=== PATIENT | female | born 1995 | race African-American/Black ===

== ENCOUNTER 2017-03-19 18:29 | Emergency (ER) | payer MEDICAID ==
[~2017-03-19 18:29] MED LIST: PROT40TA PO; SULF200S24 PO
--- NOTE | 2017-03-19 19:20 | PD ---
HPI Chief Complaint Swelling over right mons pubis. 25 weeks and 1 day Date Seen: Mar 19, 2017 Time Seen: 19:02 Travel History International Travel<30 Days: No Contact w/Intl Traveler<30Days: No Known Affected Area: No History of Present Illness HPI Pt is a 21 yo at 25 weeks and 1 day . [facility] 07-01-2017. Pt sees MFM at [place], for h/o delivery. Receives weekly Seble shots. Pt states she noticed swelling over right side of mons pubis about 5 days ago. No itching, no pain. Active movements. No vaginal bleeding or discharge. Weeks Gestation: 25 Para: 1 : 2 History Past Medical History Medical History: Denies Significant Hx Obstetric History Obstetric History Pt had 30 week delivery at 30 weeks Past Surgical History Surgical History: No Previous Surgery Family History Family History: Negative Social History Alcohol Use: No Tobacco Use: No Substance Abuse: No Allergies-Medications (Allergen,Severity, Reaction): Coded Allergies: No Known Allergies (Unverified , 06/28/15) Home Meds Active Scripts Sulfamethoxazole-Trimethoprim (BACTRIM SUSP 200-40 mg/5Ml) 5 Ml Susp, 20 ML PO BID for 7 Days, ML Prov:Virginie Connor MD 06/28/15 Pantoprazole Sodium (Protonix) 40 Mg Tab, 40 MG PO DAILY for 30 Days, TAB Prov:Jaiden Schuster MD 04/24/15 Review of Systems Except as stated in HPI: all other systems reviewed are Neg Physical Exam Narrative GENERAL: Well-nourished, well-developed patient. SKIN: Warm and dry. HEAD: Normocephalic and atraumatic. EYES: No scleral icterus. No injection or drainage. ENT: No nasal drainage noted. Mucous membranes pink. Airway patent. NECK: Supple, trachea midline. No JVD. CARDIOVASCULAR: Regular rate and rhythm without murmurs, gallops, or rubs. RESPIRATORY: Breath sounds equal bilaterally. No accessory muscle use. BREASTS: Bilateral exam showed no masses , no retractions, no nipple discharge. ABDOMEN/GI: Abdomen soft, non-tender, bowel sounds present, no rebound, no guarding Gravid to [23] weeks size Fundal Height: [23cm] GENITOURINARY: External Genitalia: intact and normal in appearance slight edema over right side of mons pubis. No induration, no tenderness. BUS glands: [-] Cervix: [-] Dilatation: [-] Effacement: [-] Station: [-] Presentation: [-] Membranes: [intact or ruptured] Uterine Contractions: [-] FHT's: Category: [130s] Baseline: [-] Reactive: [-] Variability: [-] Decels: [-] EXTREMITIES: No cyanosis or edema. BACK: Nontender without obvious deformity. No CVA tenderness. NEUROLOGICAL: Awake and alert. Motor and sensory grossly within normal limits. Five out of 5 muscle strength in all muscle groups. Normal speech. Data Data Vital Signs Reviewed: Yes [facility] Medical Record Reviewed: Yes Interpretation(s) Minimal swelling over mons pubis Plan Slight edema over right side mons pubis. No underlying induration,no tenderness. Advised observation. pt told to schedule appointment with her OBGYN within 1 week Diagnosis Diagnosis: Primary Impression: Vulval edema Disposition: DISCHARGE HOME Nito Solitario MD Mar 19, 2017 19:20
== END 2017-03-19 20:00 | disposition home or self-care (01) ==
LOC: HOBED 18:29
DX: O26.892 Other specified pregnancy related conditions, second trimester (principal); Z3A.25 25 weeks gestation of pregnancy
CPT/HCPCS: 99283

== ENCOUNTER 2017-05-17 00:21 | Emergency (ER) | payer MEDICAID, OTHER ==
[~2017-05-17] VITALS: Ht 177.8 cm; Wt 85.0 kg
[2017-05-17 00:23] VITALS: BP 135/77; PULSE 87; RESP 16; TEMP 97.9; O2SAT 100
[2017-05-17] MEDS ORDERED: PROG50IN IM (00:32)
[2017-05-17] MEDS ORDERED: prenatal vitamin PO (00:32)
--- NOTE | 2017-05-17 01:38 | PD ---
HPI Chief Complaint: Eye Problems/Injury Time Seen by Provider: 01:16 Travel History International Travel<30 days: No Contact w/Intl Traveler<30days: No History of Present Illness HPI Patient comes in complaining of bilateral eye itchiness and dryness that began yesterday. Patient using [id number] eyedrops, which seems to help. Patient denies any crusting, blurred vision, contact lens use, drainage, headaches, sensation, or injury. Patient is concerned she might be getting pink eye. Patient states she's been trying not to rub them. Denies anything making her symptoms worse. [facility] Past Medical History Medical History: Denies Significant Hx Diminished Hearing: No Tetanus Vaccination: Unknown ?: LMP: 10/25/2016 33 weeks : 2 Para: 1 Miscarriage: 0 : 0 Past Surgical History Surgical History: No Previous Surgery Social History Alcohol Use: No Tobacco Use: No Substance Use: No Allergies-Medications (Allergen,Severity, Reaction): Coded Allergies: No Known Allergies (Unverified , 06/28/15) Reported Meds & Prescriptions Reported Meds & Active Scripts Active Reported [ vitamin] 1 Tab PO DAILY Progesterone Inj (Progesterone) 50 Mg/Ml Inj 250 Mg IM ONCE A WEEK Review of Systems Except as stated in HPI: all other systems reviewed are Neg Physical Exam Narrative GENERAL: Well-developed, overly nourished, in no acute distress, and non-ill appearing. SKIN: Focused skin assessment warm and dry. HEAD: Atraumatic. Normocephalic. EYES: Pupils equal and round. EOMI. No scleral icterus. No injection or drainage. Eyelid was everted with no foreign body noted. No tenderness bilateral temporal arteries to palpation. ENT: No nasal bleeding or discharge. Mucous membranes pink and moist. NECK: Trachea midline. Supple. No nuclear rigidity. RESPIRATORY: No accessory muscle use. No respiratory distress. Clear MUSCULOSKELETAL: No obvious deformities. No clubbing. No cyanosis. No edema. Full range of motion. NEUROLOGICAL: Awake and alert. No obvious cranial nerve deficits. Motor grossly within normal limits. Normal speech. PSYCHIATRIC: Appropriate mood and affect; insight and judgment normal. Data Data Last Documented VS Vital Signs Date Time Temp Pulse Resp B/P (MAP) Pulse Ox O2 Delivery O2 Flow Rate FiO2 05/17/17 01:39 05/17/17 00:23 97.9 87 16 100 Room Air Orders Orders Ed Discharge Order (05/17/17 01:38) MDM Medical Decision Making Medical Screen Exam Complete: Yes Emergency Medical Condition: Yes Differential Diagnosis Allergic conjunctivitis, viral conjunctivitis, bacterial conjunctivitis, other Narrative Course Patient with mild allergic conjunctivitis. No evidence of foreign body by history or exam. No history to suspect corneal ulceration as well. There is no evidence of iritis, glaucoma, preseptal cellulitis, periorbital or orbital cellulitis. Patient was instructed on [id number] antihistamines. The patient was instructed to follow up with their physician and/or seamstress fitter or return here if worsened, increased pain, decreased vision, swelling around the eye or as needed. Ophthalmology referral was given. The patient agreed with plan. Patient in no obvious distress upon re-evaluation. Any questions/concerns in reference to patient diagnosis/condition discussed and clarified prior to patient's discharge. Reinforced sheer importance of close follow up with patient 's primary physician or primary care clinic. Instructed patient to return to ED immediately, if symptoms return/worsen. Patient showed understanding of above instructions. Further instructions and recommendations were detailed in discharge paperwork. Patient ambulated without difficulty out of ED at discharge. Diagnosis Primary Impression: Allergic conjunctivitis of both eyes Referrals: Chaya Bird MD Patient Instructions: Allergies (ED), Conjunctivitis (ED), General Instructions Additional Instructions: Follow-up with your primary care physician and/or seamstress fitter in one to 2 days for reevaluation. Use [id number] Claritin or Zyrtec or Benadryl for symptomatic relief. Follow instructions on the packaging.. Return to the emergency department if symptoms get worse. Disposition: 01 DISCHARGE HOME Condition: Stable [place] May 17, 2017 01:38
== END 2017-05-17 01:46 | disposition home or self-care (01) ==
LOC: NEPD 00:21
DX: H10.13 Acute atopic conjunctivitis, bilateral (principal)
CPT/HCPCS: 99282

== ENCOUNTER 2017-06-04 13:37 | Emergency (ER) | payer MEDICAID ==
[~2017-06-04 13:37] MED LIST changes: +PROG50IN IM; -PROT40TA PO; -SULF200S24 PO; +prenatal vitamin PO
--- NOTE | 2017-06-04 16:09 | PD ---
HPI Chief Complaint abdominal and back pain Date Seen: Jun 04, 2017 Time Seen: 15:50 Travel History International Travel<30 Days: No Contact w/Intl Traveler<30Days: No Known Affected Area: No History of Present Illness HPI Ms Alvarez is a 22YO at 36/1 weeks who presents with bleeding today and abdominal and back pain. Her OB-POWDERED SUGAR SUPERVISOR Dr Mazariegos examined her today and found her to be 4cm dilated. Pt has some bloody show and is not renate. Denies CP , SOB, N/V/D, and DVT pain. Weeks Gestation: 36 Para: 1 : 2 Miscarriage: 0 : 0 History Past Medical History Medical History: Denies Significant Hx Past Surgical History Surgical History: No Previous Surgery Family History Family History: Negative Social History Alcohol Use: No Tobacco Use: No Substance Abuse: No Allergies-Medications (Allergen,Severity, Reaction): Coded Allergies: No Known Allergies (Unverified , 06/28/15) Home Meds Reported Medications [ vitamin] No Conflict Check, 1 TAB PO DAILY 05/17/17 Progesterone Inj (Progesterone Inj) 50 Mg/Ml Inj, 250 MG IM ONCE a week, #1 VIAL 0 Refills 05/17/17 Review of Systems General / Constitutional: No: Fever, Chills Eyes: No: Diploplia, Blurred Vision HENT: No: Headaches, Lightheadedness Cardiovascular: No: Chest Pain or Discomfort, Palpitations Respiratory: No: Short of Breath Gastrointestinal: Abdominal Pain, No: Nausea, Vomiting, Diarrhea, Constipation Genitourinary: No: Urgency, Frequency, Dysuria Musculoskeletal: No: Weakness Skin: No Rash Neurologic: No: Weakness, Dizziness Psychiatric: No: Anxiety, Depression Physical Exam Narrative GENERAL: Well-nourished, well-developed patient in NAD. SKIN: Warm and dry. No rashes or lesions. HEAD: Normocephalic and atraumatic. EYES: No scleral icterus. No injection or drainage. EOMI. ENT: No nasal drainage noted. Mucous membranes pink. Airway patent. NECK: Supple, trachea midline. No JVD. CARDIOVASCULAR: Regular rate and rhythm without murmurs, gallops, or rubs. RESPIRATORY: Breath sounds equal bilaterally. No accessory muscle use. ABDOMEN/GI: Abdomen soft, non-tender, bowel sounds present, no rebound, no guarding Gravid to 36 weeks size GENITOURINARY: External Genitalia: intact and normal in appearance Cervix: posterior Dilatation: 4 Effacement: 80 Station: -3 Presentation: vtx Membranes: intact Uterine Contractions: no FHT's: Category: 1 Baseline: 125 Reactive: yes Variability: moderate Decels: no EXTREMITIES: No cyanosis or edema. BACK: Nontender without obvious deformity. No CVA tenderness. NEUROLOGICAL: Awake and alert. Motor and sensory grossly within normal limits. Five out of 5 muscle strength in all muscle groups. Normal speech. Data Data Vital Signs Reviewed: Yes Labs GBS tested in OB-POWDERED SUGAR SUPERVISOR office today -- status unknown MDM Narrative Course / MDM 22YO at 36/1 weeks with some abdominal and low back pain and old blood in the vaginal vault likely from minor trauma from sexual intercourse within the last 24 hours. There are no contractions. Cervix 4/80/-3/vtx with Cat 1 tracing , BL 125, reactive, moderate and no decels. PLAN: -Discharge home -Return to ED if signs of labor (regular contractions, rupture of membranes) -Pt to decide where to deliver ([facility] vs [facility]) Diagnosis Diagnosis: Primary Impression: False labor before 37 completed weeks of gestation Qualified Codes: O47.03 - False labor before 37 completed weeks of gestation, third trimester Disposition: DISCHARGE HOME Condition: Stable Andrea Campos MD R1 Jun 04, 2017 16:09
== END 2017-06-04 17:22 | disposition home or self-care (01) ==
LOC: HOBED 13:37
DX: O47.03 False labor before 37 completed weeks of gestation, third trimester (principal); M54.9 Dorsalgia, unspecified; Z3A.36 36 weeks gestation of pregnancy; Z79.899 Other long term (current) drug therapy
CPT/HCPCS: 99284

== ENCOUNTER 2017-06-10 04:36 | Inpatient (IN) | payer OTHER, MEDICAID ==
[~2017-06-10] VITALS: Ht 177.8 cm; Wt 87.0 kg
[2017-06-10] VITALS (9 sets, daily range): BP systolic 112–129; BP diastolic 12–87; PULSE 66–92; RESP 18; TEMP 97.8–98.3
[2017-06-10] MEDS ORDERED: LACTATED RINGER'S 1000 ML INJ 1,000 ML IV PRN (05:10)
[2017-06-10] MEDS ORDERED: LIDOCAINE HCL 1% 50 ML VIAL I-DERMAL PRN (05:15)
[2017-06-10] MEDS ORDERED: SODIUM CHLORID 0.9% 500 ML INJ 500 ML IV PRN (05:15)
[2017-06-10] MEDS ORDERED: MINERAL OIL 10 ML VIAL TOPICAL PRN (05:15)
[2017-06-10] MEDS ORDERED: CITRIC ACID-SODIUM CITRATE LIQ 30 ML UDC PO SCH (05:15)
[2017-06-10] MEDS ORDERED: OXYTOCIN 30 UNITS-500ML PREMIX 500 ML IV ONE (05:15)
[2017-06-10] MEDS ORDERED: LIDOCAINE HCL 1% 50 ML VIAL INFIL PRN (05:15)
--- NOTE | 2017-06-10 05:15 | HHI.HP ---
HPI Chief Complaint Contractions Date Seen: Jun 10, 2017 Time Seen: 05:00 Travel History International Travel<30 Days: No Contact w/Intl Traveler<30Days: No Known Affected Area: No History of Present Illness HPI 22-year-old white female at 37 weeks who sees doctors and warm and but is come here she is complaining of contractions no bleeding or leaking, heart rate tracing is reactive and she is renate irregularly. Actually is completely dilated on admission to the hospital precipitous labor Weeks Gestation: 37 Para: 1 : 2 Last Menstrual Period: Jun 10, 2017 History Obstetric History Obstetric History One vaginal delivery at 30 weeks Social History Alcohol Use: No Tobacco Use: No Substance Abuse: No Allergies-Medications (Allergen,Severity, Reaction): Coded Allergies: No Known Allergies (Unverified , 06/28/15) Home Meds Reported Medications [ vitamin] No Conflict Check, 1 TAB PO DAILY 05/17/17 Progesterone Inj (Progesterone Inj) 50 Mg/Ml Inj, 250 MG IM ONCE a week, #1 VIAL 0 Refills 05/17/17 Review of Systems General / Constitutional: No: Fever, Weight Gain, Chills, Other Eyes: No: Diploplia, Blurred Vision, Visual changes, Pain, Photophobia HENT: No: Headaches, Vertigo, Lightheadedness Cardiovascular: No: Irregular Rhythm, Chest Pain or Discomfort, Palpitations, Tachycardia, Syncope, Varicosities, Edema, Cyanosis Respiratory: No: Cough, Short of Breath, Other Gastrointestinal: Abdominal Pain, No: Nausea, Vomiting, Diarrhea Genitourinary: No: Decreased Urinary Output, Oliguria Musculoskeletal: No: Limited ROM, Weakness, Cramping, Edema, Pain Skin: No Rash, No Itching, No Dryness, No Lumps, No Change in Pigmentation, No Change in Nails, No Alopecia, No Lesions Neurologic: No: Weakness, Dizziness, Syncope, Focal Abnormalities, Coordination Problem, Headache, Slurred Speech, Seizures Psychiatric: No: Depression, Suicidal Ideations, Homicidal Ideation Endocrine: No: Heat Intolerance, Cold Intolerance, Polydipsia, Polyuria, Other Physical Exam Narrative GENERAL: Well-nourished, well-developed patient. SKIN: Warm and dry. HEAD: Normocephalic and atraumatic. EYES: No scleral icterus. No injection or drainage. ENT: No nasal drainage noted. Mucous membranes pink. Airway patent. NECK: Supple, trachea midline. No JVD. CARDIOVASCULAR: Regular rate and rhythm without murmurs, gallops, or rubs. RESPIRATORY: Breath sounds equal bilaterally. No accessory muscle use. BREASTS: Bilateral exam showed no masses , no retractions, no nipple discharge. ABDOMEN/GI: Abdomen soft, non-tender, bowel sounds present, no rebound, no guarding Gravid to [37-] weeks size Fundal Height: [37-] GENITOURINARY: External Genitalia: intact and normal in appearance BUS glands: [-] Cervix: [-] Dilatation: [-10] Effacement: [-100] Station: [-1] Presentation: [-vtx] Membranes: [intact ] Uterine Contractions: [reg-] FHT's: Category: [1-] Baseline: [-133] Reactive: [-yes] Variability: [mod-] Decels: [0-] EXTREMITIES: No cyanosis or edema. BACK: Nontender without obvious deformity. No CVA tenderness. NEUROLOGICAL: Awake and alert. Motor and sensory grossly within normal limits. Five out of 5 muscle strength in all muscle groups. Normal speech. Caprini VTE Risk Assessment Caprini VTE Risk Assessment: No/Low Risk (score <= 1) Caprini Risk Assessment Model Point Value = 1 Point Value = 2 Point Value = 3 Point Value = 5 Age 41-60 Minor surgery BMI > 25 kg/m2 Swollen legs Varicose veins or History of unexplained or recurrent spontaneous Oral contraceptives or hormone replacement Sepsis (< 1 month) Serious lung disease, including pneumonia (< 1 month) Abnormal pulmonary function Acute myocardial infarction Congestive heart failure (< 1 month) History of inflammatory bowel disease Medical patient at bed rest Age 61-74 Arthroscopic surgery Major open surgery (> 45 min) Laparoscopic surgery (> 45 min) Malignancy Confined to bed (> 72 hours) Immobilizing plaster cast Central venous access Age >= 75 History of VTE Family history of VTE Factor V Leiden Prothrombin [id number] Lupus anticoagulant Anticardiolipin antibodies Elevated serum homocysteine Heparin-induced thrombocytopenia Other congenital or acquired thrombophilia Stroke (< 1 month) Elective arthroplasty Hip, pelvis, or leg fracture Acute spinal cord injury (< 1 month) Prophylaxis Regimen Total Risk Factor Score Risk Level Prophylaxis Regimen 0-1 Low Early ambulation 2 Moderate Order ONE of the following: *Sequential Compression Device (SCD) *Heparin 5000 units SQ BID 3-4 Higher Order ONE of the following medications: *Heparin 5000 units SQ TID *Enoxaparin/Lovenox 40 mg SQ daily (WT < 150 kg, CrCl > 30 mL/min) *Enoxaparin/Lovenox 30 mg SQ daily (WT < 150 kg, CrCl > 10-29 mL/min) *Enoxaparin/Lovenox 30 mg SQ BID (WT < 150 kg, CrCl > 30 mL/min) AND/OR *Sequential Compression Device (SCD) 5 or more Highest Order ONE of the following medications: *Heparin 5000 units SQ TID (Preferred with Epidurals) *Enoxaparin/Lovenox 40 mg SQ daily (WT < 150 kg, CrCl > 30 mL/min) *Enoxaparin/Lovenox 30 mg SQ daily (WT < 150 kg, CrCl > 10-29 mL/min) *Enoxaparin/Lovenox 30 mg SQ BID (WT < 150 kg, CrCl > 30 mL/min) AND *Sequential Compression Device (SCD) Data Data Orders Orders Ob (2e) Additional Admit Info (06/10/17 05:09) Admit To Inpatient (06/10/17 ) Vital Signs (Adult) .Per protocol (06/10/17 05:10) Heart (06/10/17 05:10) Amnioinfusion (06/10/17 05:10) Urinary Catheter Management .ONCE (06/10/17 05:10) Lactated Ringer's 1000 Ml Inj (Lr 1000 M (06/10/17 05:10) Lactated Ringer's 1000 Ml Inj (Lr 1000 M (06/10/17 05:10) Sodium Chlorid 0.9% 500 Ml Inj (Ns 500 M (06/10/17 05:15) Sodium Chlor 0.9% 1000 Ml Inj (Ns 1000 M (06/10/17 05:30) Lidocaine 1% Inj (50 Ml) (Xylocaine 1% I (06/10/17 05:15) Citric Acid-Sodium Citrate Liq (Bicitra (06/10/17 05:15) Fentanyl Inj (Fentanyl Inj) (06/10/17 05:15) Fentanyl Inj (Fentanyl Inj) (06/10/17 05:15) Complete Blood Count With Diff (06/10/17 05:10) Hold Clot (06/10/17 05:10) Abo/Rh Blood Type (06/10/17 05:10) Urinalysis - C+S If Indicated (06/10/17 05:10) Drug Screen, Random Urine (06/10/17 05:10) Resp Oxygen Non Rebreathe Mask (06/10/17 ) ^ Epidural / Intrathecal Infus (06/10/17 05:10) Oxytocin 30 Units-500ml Premix (Pitocin (06/10/17 05:15) Lidocaine 1% Inj (50 Ml) (Xylocaine 1% I (06/10/17 05:15) Light Mineral Oil (Muri-Lube Oil) (06/10/17 05:15) Labs GBS unknown Assessment/Plan Assessment and Plan Patient is 22-year-old black female at 37 weeks presents to OB ED. [place] in the precipitous labor completely dilated renate regularly, heart rate tracing is reactive Plan--admit for labor management and anticipate a rapid vaginal delivery Mike Waite II, MD Jun 10, 2017 05:15
[2017-06-10] MEDS: LACTATED RINGER'S 1000 ML INJ 1,000 ML IV SCH (05:27)
[2017-06-10] MEDS ORDERED: SODIUM CHLOR 0.9% 1000 ML INJ 1,000 ML IV PRN (05:30)
[2017-06-10 05:47] LABS: AUTOMATED NEUTROPHIL # 4.6 TH/MM3 (1.8-7.7); BASOPHIL % 0.3 % (0.0-2.0); EOSINOPHIL # 0.5 TH/MM3 (0-0.4); EOSINOPHIL % 5.5 % (0.0-4.0); HEMATOCRIT 35.4 % (35.0-46.0); HEMO FLAGS DIFF FINAL; LYMPHOCYTE # 2.7 TH/MM3 (1.0-4.8); MEAN CELL VOLUME 89.4 FL (80.0-100.0); MEAN CORPUSCULAR HEMOGLOBIN 30.4 PG (27.0-34.0); MONO % 6.8 % (0.0-8.0); NEUT % 55.4 % (16.0-70.0); PLATELET COUNT 207 TH/MM3 (150-450); RED BLOOD COUNT 3.97 MIL/MM3 (4.00-5.30); RED CELL DISTRIBUTION WIDTH 13.9 % (11.6-17.2); WHITE BLOOD COUNT 8.4 TH/MM3 (4.0-11.0)
--- NOTE | 2017-06-10 06:08 | PD.OB.DELI ---
Weeks gestation: 37 Gest age assessed date: Jun 10, 2017 Gest age assessed time: 05:00 Pt started active labor?: Yes Active labor start date: Jun 10, 2017 Active labor start time: 04:00 Medical induction of labor?: No Artificial rupture of membrane: Yes Artificial ROM date: Jun 10, 2017 Artifical ROM time: 05:40 Anesthesia: None, Other Episiotomy: None Vaginal Delivery: Normal Presentation: Occiput anterior Nuchal Cord: None Delayed cord clamping (45 sec): Yes : Female Delivery date: Jun 10, 2017 Delivery time: 05:43 One Minute : 9 Five Minute : 9 Weight: 2660 gm Placenta: Spontaneous delivery, Intact Laceration: Vaginal laceration, 1 deg Repair: Vicryl interrupted, Vicryl running Estimated blood loss: 100 cc Mike Waite II, MD Jun 10, 2017 06:08
[2017-06-10] MEDS ORDERED: ALUMINUM/MAGNESIUM/SIMETH 30 ML CUP PO PRN (06:15)
[2017-06-10] MEDS ORDERED: DOCUSATE SODIUM 50 MG/SENNA 8.6 MG TAB PO PRN (06:15)
[2017-06-10] MEDS ORDERED: BENZOCAINE 20% TOPICAL SPRAY 60 ML CAN TOPICAL PRN (06:15)
[2017-06-10] MEDS ORDERED: ZOLPIDEM TARTRATE 5 MG TAB PO PRN (06:15)
[2017-06-10] MEDS ORDERED: oxyCODONE/ACETAMINOPHEN 5 MG/325 MG TAB PO PRN (06:15)
[2017-06-10] MEDS ORDERED: SODIUM CHLORIDE 0.9% FLUSH 10 ML FLUSH IV FLUSH PRN (06:15)
[2017-06-10] MEDS ORDERED: IBUPROFEN 800 MG TAB PO PRN (06:15)
[2017-06-10] MEDS ORDERED: ACETAMINOPHEN 325 MG TAB PO PRN (06:15)
[2017-06-10] MEDS ORDERED: OXYTOCIN 30 UNITS-500ML PREMIX 500 ML IV SCH (06:15)
[2017-06-10] MEDS ORDERED: ONDANSETRON ODT 4 MG TAB PO PRN (06:15)
[2017-06-10] MEDS ORDERED: IBUPROFEN SUSP 100 MG/5 ML 120 ML BOTTLE PO PRN (06:45)
[2017-06-10 07:25] LABS: BLOOD, URINE LARGE (NEG); COMMENT (UR) CULT NOT INDICATED; CULTURE IF INDICATED CULT NOT INDICATED; GLUCOSE,URINE NEG (NEG); KETONE, URINE 10 mg/dL (NEG); MUCUS URINE FEW /lpf (OCC); NITRITE,URINE NEG (NEG)
[2017-06-10 07:26] LABS: URINE COLOR RED (YELLW/STRAW)
[2017-06-10] MEDS: IBUPROFEN SUSP 100 MG/5 ML UDC PO PRN ×3 (08:06→23:56)
[2017-06-10] MEDS ORDERED: SODIUM CHLORIDE 0.9% FLUSH 10 ML FLUSH IV FLUSH SCH (09:00)
[2017-06-10] MEDS: WITCH HAZEL 50%/GLYCERIN 12.5% 40 PAD JAR TOPICAL PRN (09:33)
[2017-06-10] MEDS ORDERED: DIPHTH/TETANUS/ACEL PERTUSSIS (BOOSTER) 0.5 ML VIAL/PFS IM ONE (16:00)
[2017-06-10] MEDS ORDERED: MEASLES, MUMPS, RUBELLA VACCINE 0.5 ML VIAL SQ ONE (16:00)
[2017-06-11 08:00] VITALS: BP 114/68; PULSE 71; RESP 18; TEMP 97.9; O2SAT 99
--- NOTE | 2017-06-11 08:32 | HHI.OB ---
Subjective Post Day: 1 Remarks Ms Alvarez had no acute events overnight. AFVSS. Pt pain is controlled, ambulating w/o dizziness, tolerating PO, voiding and flatus but no BM yet. Lochia is normal and decreasing. Pt plans to breastfeed if possible. Denies CP, SOB, N/V/D, DVT pain. Objective Vitals/I&O Vital Signs Date Time Temp Pulse Resp B/P (MAP) Pulse Ox O2 Delivery O2 Flow Rate FiO2 06/10/17 20:00 66 121/87 (98) 06/10/17 20:00 97.8 18 06/10/17 08:50 98.3 77 18 112/12 (45) 06/10/17 08:50 129/79 (96) Objective Remarks GENERAL: Well-nourished, well-developed patient lying in bed holding her baby. CARDIOVASCULAR: Regular rate and rhythm without murmur, gallop, or rub. RESPIRATORY: Breath sounds equal bilaterally in all lung whalen. No accessory muscle use. ABDOMEN/GI: Abdomen soft, non-tender. appropriately distended. Normal BS. Fundus: Firm, non-tender below umbilicus. GENITOURINARY: Light to moderate bleeding. EXTREMITIES: No cyanosis or edema, non-tender, without signs of DVT. Medications and IVs Current Medications Medications (Trade) Dose Ordered Sig/Iraida Route Start Time Stop Time Status Last Admin Lactated Ringer's 1,000 ml @ 125 mls/hr Q8H IV 06/10/17 05:10 06/10/17 05:27 Lactated Ringer's 1,000 ml @ 3,000 mls/hr Q20M PRN IV 06/10/17 05:10 Sodium Chloride 1,000 ml @ 100 mls/hr Q10H PRN IV 06/10/17 05:30 (Xylocaine 1% Inj (50 ml)) 0.1 ml UNSCH X1 PRN I-DERMAL 06/10/17 05:15 06/13/17 05:14 (Bicitra Liq) 30 ml CUSTOMER SERVICE ASSISTANT PO 06/10/17 05:15 06/14/17 05:14 (fentaNYL INJ) 50 mcg Q1H PRN IV PUSH 06/10/17 05:15 (fentaNYL INJ) 100 mcg Q1H PRN IV PUSH 06/10/17 05:15 (Xylocaine 1% Inj (50 ml)) 10 ml UNSCH X1 PRN INFIL 06/10/17 05:15 06/12/17 05:14 06/10/17 06:15 (Muri-Lube Oil) 10 ml UNSCH PRN TOPICAL 06/10/17 05:15 (NS Flush) 2 ml BID IV FLUSH 06/10/17 09:00 (NS Flush) 2 ml UNSCH PRN IV FLUSH 06/10/17 06:15 06/10/17 06:54 (Tylenol) 650 mg Q4H PRN PO 06/10/17 06:15 (Percocet 5-325 Mg) 1 tab Q4H PRN PO 06/10/17 06:15 (Americaine 20% Top Spr) 1 spray Q4H PRN TOPICAL 06/10/17 06:15 06/10/17 09:33 (Tucks Pads) 1 applic QID PRN TOPICAL 06/10/17 06:15 06/10/17 09:33 (Nina-Colace) 2 tab Q12H PRN PO 06/10/17 06:15 (Ambien) 5 mg HS PRN PO 06/10/17 06:15 (Mag-Al Plus Susp Liq) 15 ml Q8H PRN PO 06/10/17 06:15 (Zofran Odt) 4 mg Q6H PRN PO 06/10/17 06:15 (Motrin Liq) 600 mg Q6H PRN PO 06/10/17 08:00 06/10/17 23:56 Assessment/Plan Assessment and Plan 22YO delivered at 37 weeks via . AFVSS. Lochia is normal and decreasing. Pt's pain is controlled on ibuprofen, ambulating, tolerating PO, voiding, and flatus but no BM yet. Working on . Denies CP, SOB, N/V /D and DVT pain. PLAN: -Routine care -Pain control on ibuprofen and, if necessary, Percocet -Advised to ambulate OOB; showers only, no baths, for next 2-3 weeks -Pelvic rest with no sexual intercourse for 6 weeks -Pt will follow up with WEALTH MANAGEMENT ADVISOR in 6 weeks -Pt plans to discuss control with WEALTH MANAGEMENT ADVISOR at follow up Discharge planned for tomorrow Pt discussed with Divya Bourgeois and Andrea Chery MD R1 Jun 11, 2017 08:32
[2017-06-11] MEDS ORDERED: CHIL100S14 PO (09:52)
--- NOTE | 2017-06-11 09:54 | HHI.DCPOC ---
Discharge Care Plan Report Symptoms to Your Doctor -Temperature above 100.5 degrees -Redness, of incision or excessive or foul smelling drainage -Unusual pain or calf pain -Increased vaginal bleeding -Painful or difficulty urinating -Feelings of extreme sadness or anxiety after 2 weeks Goals to Promote Your Health * To prevent worsening of your condition and complications, please take medications as prescribed. Please take showers (no baths) for the next 2-[address] nothing in your vagina for 6 weeks (including no sexual intercourse). * To maintain your health at the optimal level, please follow up with your OB/ POWERHOUSE ELECTRICIAN in 6 weeks. Directions to Meet Your Goals Take your medications as prescribed Follow your dietary instruction Follow activity as directed Ensure plenty of rest for recovery Drink fluids for hydration Keep your appointments as scheduled Take your immunizations and boosters as scheduled If your symptoms worsen call your PCP, if no PCP go to Urgent Care Center or Emergency Room Smoking is Dangerous to Your Health. Avoid second hand smoke Call the 24-hour crisis hotline for domestic abuse at Andrea Campos MD R1 Jun 11, 2017 09:54
[2017-06-11] MEDS: WITCH HAZEL 50%/GLYCERIN 12.5% 40 PAD JAR TOPICAL PRN (15:16)
[2017-06-11] MEDS: LACTATED RINGER'S 1000 ML INJ 1,000 ML IV SCH (19:26)
[2017-06-12] MEDS: LACTATED RINGER'S 1000 ML INJ 1,000 ML IV SCH (05:10)
[2017-06-12 08:00] VITALS: BP 128/82; PULSE 69; RESP 16; TEMP 98.1
--- NOTE | 2017-06-12 08:52 | HHI.OB ---
Subjective Post Day: 2 Remarks Patient is a 22-year-old delivered at 37 weeks. Patient is day 2 after . Patient's pain is well-controlled. Patient reports eating and drinking without any nausea or vomiting. Patient reports minimal bleeding. Patient has passed gas and bowel movements. Patient is walking without lower extremity pain or shortness of breath. Patient reports desire for contraception through her outpatient provider and both formula- and breast-feeding. Objective Vitals/I&O Vital Signs Date Time Temp Pulse Resp B/P (MAP) Pulse Ox O2 Delivery O2 Flow Rate FiO2 06/12/17 08:00 98.1 69 16 128/82 (97) Objective Remarks GENERAL: Well-nourished, well-developed patient lying in bed holding her baby. CARDIOVASCULAR: Regular rate and rhythm without murmur, gallop, or rub. RESPIRATORY: Breath sounds equal bilaterally in all lung whalen. No accessory muscle use. ABDOMEN/GI: Abdomen soft, non-tender. appropriately distended. Normal BS. Fundus: Firm, non-tender below umbilicus. GENITOURINARY: Light to moderate bleeding. EXTREMITIES: No cyanosis or edema, non-tender, without signs of DVT. Medications and IVs Current Medications Medications (Trade) Dose Ordered Sig/Iraida Route Start Time Stop Time Status Last Admin Lactated Ringer's 1,000 ml @ 125 mls/hr Q8H IV 06/10/17 05:10 06/10/17 05:27 Lactated Ringer's 1,000 ml @ 3,000 mls/hr Q20M PRN IV 06/10/17 05:10 Sodium Chloride 1,000 ml @ 100 mls/hr Q10H PRN IV 06/10/17 05:30 (Xylocaine 1% Inj (50 ml)) 0.1 ml UNSCH X1 PRN I-DERMAL 06/10/17 05:15 06/13/17 05:14 (Bicitra Liq) 30 ml OPERATIONS AND INTELLIGENCE ASSISTANT PO 06/10/17 05:15 06/14/17 05:14 (fentaNYL INJ) 50 mcg Q1H PRN IV PUSH 06/10/17 05:15 (fentaNYL INJ) 100 mcg Q1H PRN IV PUSH 06/10/17 05:15 (Muri-Lube Oil) 10 ml UNSCH PRN TOPICAL 06/10/17 05:15 (NS Flush) 2 ml BID IV FLUSH 06/10/17 09:00 (NS Flush) 2 ml UNSCH PRN IV FLUSH 06/10/17 06:15 06/10/17 06:54 (Tylenol) 650 mg Q4H PRN PO 06/10/17 06:15 (Percocet 5-325 Mg) 1 tab Q4H PRN PO 06/10/17 06:15 (Americaine 20% Top Spr) 1 spray Q4H PRN TOPICAL 06/10/17 06:15 06/10/17 09:33 (Tucks Pads) 1 applic QID PRN TOPICAL 06/10/17 06:15 06/11/17 15:16 (Nina-Colace) 2 tab Q12H PRN PO 06/10/17 06:15 (Ambien) 5 mg HS PRN PO 06/10/17 06:15 (Mag-Al Plus Susp Liq) 15 ml Q8H PRN PO 06/10/17 06:15 (Zofran Odt) 4 mg Q6H PRN PO 06/10/17 06:15 (Motrin Liq) 600 mg Q6H PRN PO 06/10/17 08:00 06/10/17 23:56 Assessment/Plan Problem List: (1) Normal vaginal delivery of second ICD Codes: O80 - Encounter for full-term uncomplicated delivery Assessment and Plan 22YO delivered at 37 weeks via . AFVSS. Lochia is normal and decreasing. Pt's pain is controlled on ibuprofen, ambulating, tolerating PO, voiding, and flatus but no BM yet. Working on . Denies CP, SOB, N/V /D and DVT pain. PLAN: -Routine care -Pain control on ibuprofen and, if necessary, Percocet -Advised to ambulate OOB; showers only, no baths, for next 2-3 weeks -Pelvic rest with no sexual intercourse for 6 weeks -Pt will follow up with FINISHED GOODS STOCK CLERK in 6 weeks -Pt plans to discuss control with FINISHED GOODS STOCK CLERK at follow up Discharge planned for today. Pt discussed with Dr. Choe Discharge Planning Plan for discharge today. Sam Simpson MD R2 Jun 12, 2017 08:51
== END 2017-06-12 11:12 | disposition home or self-care (01) | DRG 775 ==
LOC: HOBED 04:36 → H2EB 05:10 → H1EA 08:12
PROVIDERS: ADMIT Obstetrics & Gynecology Maternal & Fetal Medicine; ATTEND Obstetrics & Gynecology Maternal & Fetal Medicine
PROC: 10E0XZZ Delivery of Products of Conception, External Approach (ICD-10-PCS; principal; 2017-06-10)
PROC: 0HQ9XZZ Repair Perineum Skin, External Approach (ICD-10-PCS; 2017-06-10)
DX: O62.3 Precipitate labor (principal); O70.0 First degree perineal laceration during delivery; Z37.0 Single live birth; Z3A.37 37 weeks gestation of pregnancy
CPT/HCPCS: 80307; 81001; 85025; 86900; 86901; J2590; J3010; J7120

== ENCOUNTER 2017-07-16 20:14 | Emergency (ER) | payer OTHER, MEDICAID ==
[~2017-07-16] VITALS: Ht 177.8 cm; Wt 81.8 kg
[~2017-07-16 20:14] MED LIST changes: +CHIL100S14 PO; -PROG50IN IM
[2017-07-16 20:17] VITALS: BP 157/89; PULSE 87; RESP 14; TEMP 98.6; O2SAT 98
[2017-07-16 23:16] VITALS: BP 146/82; PULSE 63; RESP 20; TEMP 98; O2SAT 100
[2017-07-16] MEDS ORDERED: ONDANSETRON HCL 4 MG/2 ML VIAL IV PUSH ONE (23:45)
[2017-07-16] MEDS ORDERED: PANTOPRAZOLE SODIUM 40 MG VIAL IV PUSH ONE (23:45)
[2017-07-16] MEDS ORDERED: SODIUM CHLOR 0.9% 1000 ML INJ 1,000 ML IV ONE (23:45)
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
[2017-07-17 00:16] VITALS: BP 113/71; PULSE 61; RESP 20; O2SAT 100
--- NOTE | 2017-07-17 00:26 | RADRPT ---
EXAM DATE/TIME: 07/16/2017 23:51 [place] COMPARISON: No previous studies available for comparison. INDICATIONS : Vomiting blood. MEDICAL HISTORY : None. SURGICAL HISTORY : None. ENCOUNTER: Initial ACUITY: 1 day PAIN SCORE: 0/10 LOCATION: Bilateral chest FINDINGS: A single view of the chest demonstrates the lungs to be symmetrically aerated without evidence of mas s, infiltrate or effusion. The cardiomediastinal contours are unremarkable. Osseous structures are intact. CONCLUSION: Normal examination for a patient of this age. Bijan Willams MD on July 17, 2017 at 0:24 Board Certified Radiologist. This report was verified electronically.
[2017-07-17 00:32] LABS: AUTOMATED NEUTROPHIL # 4.4 TH/MM3 (1.8-7.7); BASOPHIL % 0.1 % (0.0-2.0); EOSINOPHIL # 0.4 TH/MM3 (0-0.4); EOSINOPHIL % 5.6 % (0.0-4.0); HEMATOCRIT 38.2 % (35.0-46.0); HEMOGLOBIN 12.8 GM/DL (11.6-15.3); LYMPH % 23.1 % (9.0-44.0); LYMPHOCYTE # 1.5 TH/MM3 (1.0-4.8); MEAN CELL VOLUME 88.8 FL (80.0-100.0); MEAN CORPUSCULAR HEMOGLOBIN 29.8 PG (27.0-34.0); MEAN CORPUSCULAR HGB CONC 33.6 % (32.0-36.0); MEAN PLATELET VOLUME 9.2 FL (7.0-11.0); MONO % 4.3 % (0.0-8.0); MONOCYTE # 0.3 TH/MM3 (0-0.9); NEUT % 66.9 % (16.0-70.0); PLATELET COUNT 200 TH/MM3 (150-450); RED CELL DISTRIBUTION WIDTH 13.8 % (11.6-17.2); WHITE BLOOD COUNT 6.6 TH/MM3 (4.0-11.0)
[2017-07-17 00:46] LABS: ALBUMIN 3.5 GM/DL (3.4-5.0); ALT (GPT) 19 U/L (10-53); AST (GOT) 12 U/L (15-37); BICARBONATE 30.6 MEQ/L (21.0-32.0); BLOOD UREA NITROGEN 9 MG/DL (7-18); CALCIUM 8.8 MG/DL (8.5-10.1); CHLORIDE 106 MEQ/L (98-107); CREATININE 0.73 MG/DL (0.50-1.00); GLOMERULAR FILTRATION RATE 121 ML/MIN (>89); GLUCOSE,RANDOM 92 MG/DL (74-106); LIPASE 79 U/L (73-393); SODIUM (NA) 140 MEQ/L (136-145)
[2017-07-17 00:48] LABS: ALKALINE PHOSPHATASE 61 U/L (45-117); TOTAL BILIRUBIN ADULT 0.5 MG/DL (0.2-1.0); TOTAL PROTEIN 7.4 GM/DL (6.4-8.2)
[2017-07-17 00:51] LABS: BILIRUBIN, URINE NEG (NEG); BLOOD, URINE NEG (NEG); GLUCOSE,URINE NEG (NEG); KETONE, URINE NEG (NEG); MUCUS URINE MOD /lpf (OCC); NITRITE,URINE NEG (NEG); PH, URINE 7.5 (5.0-8.5); SQUAMOUS EPITHELIAL CELL URINE 1 /hpf (0-5); URINE COLOR YELLOW (YELLW/STRAW); URINE LEUKOCYTE ESTERASE NEG (NEG)
[2017-07-17] MEDS ORDERED: OMEP40CA2 PO (00:56)
[2017-07-17] MEDS ORDERED: METOCLOPRAMIDE INJ 10 MG in SODIUM CHLORIDE 0.9% INJ 50 ML IV ONE (01:00)
[2017-07-17 01:20] VITALS: BP 128/63
== END 2017-07-17 01:31 | disposition home or self-care (01) ==
LOC: NEPD 20:14
DX: K52.9 Noninfective gastroenteritis and colitis, unspecified (principal)
CPT/HCPCS: 71045; 80053; 81001; 83690; 84703; 85025; 96361; 96374; 96375; 99284; C9113; J2405; J2765; J7030